=== PATIENT | female | born 1980 | race Caucasian/White ===

== ENCOUNTER 2017-12-25 02:19 | Emergency (ER) | payer MEDICAID ==
[~2017-12-25] VITALS: Ht 177.8 cm; Wt 224.0 kg
[2017-12-25] MEDS ORDERED: KETOROLAC 60MG/2ML VIAL IM ONE (07:00)
[2017-12-25 08:23] VITALS: BP 102/50
== END 2017-12-25 08:23 | disposition home or self-care (01) ==
LOC: ER 02:19
DX: G89.29 Other chronic pain (principal); M54.5 Low back pain; M54.2 Cervicalgia; Z87.828 Personal history of other (healed) physical injury and trauma
CPT/HCPCS: 81025; 96372; 99283; J1885